=== PATIENT | female | born 1995 | race Caucasian/White ===

== ENCOUNTER 2017-11-27 19:27 | Emergency (ER) | payer BC ==
[2017-11-27] MEDS ORDERED: Azithromycin TAB* 250 MG PO ONE (20:46)
[2017-11-27] MEDS ORDERED: cefTRIAXone VIAL(*) 250 MG VIAL IM ONE (20:46)
--- NOTE | 2017-11-27 21:19 | ED ---
Throat Pain/Nasal Congestion - HPI Summary HPI Summary: Pt. is a 22 y.o who presents to the ER for redness, swelling and drainage from her left eye x one day. Pt. states she goes to [facility] and went to the health clinic today. They placed her on clindamycin and an eye drop. Pt. presents to the ER because swelling has increased. She denies other URI sxs, fever. She has no past medical hx. She does not wear contacts. Symptoms are mild in severity. No current modifying factors. - History of Current Complaint Chief Complaint: EDEyeProblem Time Seen by Provider: 11/27/17 20:14 Hx Obtained From: Patient Onset/Duration: Gradual Onset Severity: Mild Associated Signs And Symptoms: Positive: Negative - Allergies/Home Medications Allergies/Adverse Reactions: Allergies Allergy/AdvReac Type Severity Reaction Status Date / Time No Known Allergies Allergy Verified 11/27/17 19:34 PMH/Surg Hx/FS Hx/Imm Hx Infectious Disease History: No Infectious Disease History: Denies: Traveled Outside the [place] in Last 30 Days Review of Systems Constitutional: Negative Negative: Fever, Chills Positive: Drainage, Erythema, Other - Edema ENT: Negative Cardiovascular: Negative Respiratory: Negative All Other Systems Reviewed And Are Negative: Yes Physical Exam Triage Information Reviewed: Yes Vital Signs On Initial Exam: Initial Vitals Temp Pulse Resp BP Pulse Ox 98.4 F 94 16 122/65 99 11/27/17 19:32 11/27/17 19:32 11/27/17 19:32 11/27/17 19:32 11/27/17 19:32 Vital Signs Reviewed: Yes Appearance: Positive: Well-Appearing Skin: Positive: Warm, Dry Head/Face: Positive: Normal Head/Face Inspection Eyes: Positive: EOMI, LYNDA, Conjunctiva Inflammed, Discharge, Other: - Left conjunctiva is injected with purulent discharge. Edema to upper and low lids. No significant erythema. EOMI with minimal pain. Neck: Positive: Supple, Nontender Diagnostics - Vital Signs Vital Signs Temp Pulse Resp BP Pulse Ox 11/27/17 19:32 98.4 F 94 16 122/65 99 - Laboratory Lab Statement: Any lab studies that have been ordered have been reviewed, and results considered in the medical decision making process. EENT Course/Dx - Course Course Of Treatment: Pt. presenting with likely bacterial conjuctivitis. No evidence of orbital cellulitis. She is afebrile and very well appearing. Case discussed with Dr. Giron and plan will be to culture and cover for possible STIs given discharge and risk factors. Eye culture obtained. Will cover with IM rocephin and PO zithromax. Pt. has an apt. at her [facility] tomorrow for f.u. To apply warm compresses. To return to ER for increased swelling, redness, fever. Pt. understands and agrees with plan. - Differential Diagnoses Differential Diagnoses: Allergic Rhinitis, Cellulitis, Conjunctivitis - Diagnoses Provider Diagnoses: Bacterial conjunctivitis Discharge - Sign-Out/Discharge Documenting (check all that apply): Discharge - Discharge Plan Condition: Good Disposition: HOME Patient Education Materials: Conjunctivitis (ED) [facility] - Additional Instructions: Continue antibiotics as directed Follow up with the [facility] tomorrow as scheduled Apply warm compresses to eye Return to ER for increased swelling, redness, fever, or if concerned - Billing Disposition and Condition Condition: GOOD Disposition: HOME
[2017-11-27] MEDS ORDERED: Lidocaine 1%* 5 ML VIAL ONE (21:27)
[2017-11-27 23:19] VITALS: BP 122/68
--- NOTE | 2017-11-29 15:09 | ED ---
Progress - Progress Note Progress Note: Patient's a Gram stain returns with 3+ neutrophils and 1+ epithelial cells. No organisms seen. Course/Dx - Course Course Of Treatment: Pt. presenting with likely bacterial conjuctivitis. No evidence of orbital cellulitis. She is afebrile and very well appearing. Case discussed with Dr. Giron and plan will be to culture and cover for possible STIs given discharge and risk factors. Eye culture obtained. Will cover with IM rocephin and PO zithromax. Pt. has an apt. at her [facility] tomorrow for f.u. To apply warm compresses. To return to ER for increased swelling, redness, fever. Pt. understands and agrees with plan. - Diagnoses Provider Diagnoses: Bacterial conjunctivitis Discharge - Sign-Out/Discharge Documenting (check all that apply): Post-Discharge Follow Up - Discharge Plan Condition: Good Disposition: HOME Patient Education Materials: Conjunctivitis (ED) Referrals: [facility] [Primary Care Provider] - Additional Instructions: Continue antibiotics as directed Follow up with the [facility] tomorrow as scheduled Apply warm compresses to eye Return to ER for increased swelling, redness, fever, or if concerned - Billing Disposition and Condition Condition: GOOD Disposition: HOME
== END 2017-11-27 21:50 | disposition home or self-care (01) ==
LOC: ED 19:27
DX: H10.9 Unspecified conjunctivitis (principal)
CPT/HCPCS: 87070; 87205; 96372; 99281; A9270-GY; J0696